=== PATIENT | male | born 2000 | race African-American/Black ===

== ENCOUNTER 2023-05-29 13:56 | Outpatient (REF) | payer OTHER, SELFPAY ==
--- NOTE | ~2023-05-29 | MR_ITS ---
EXAMINATION: MR KNEE WITHOUT CONTRAST, RIGHT CLINICAL INFORMATION: Right knee pain. COMPARISON: None available. TECHNIQUE: MRI of the knee without contrast was performed using routine sequences on a high-field scanner. FINDINGS: MENISCI: Medial Meniscus: At the posterior horn of the medial meniscus near the 5 mm low signal intensity flap of tissue along the femoral margin which could correspond to a very small flap fragment. No appreciable donor site is identified, however. A small synovial fold is favored. The medial meniscus otherwise appears normal. Lateral Meniscus: Intact LIGAMENTS: Cruciate: Intact Collateral: Intact EXTENSOR MECHANISM: Although the Insall-Salvati ratio is diminished (0.7) as a result of an elongated distal pole of the patella, the Ramez-Maciej index is normal (1.2). Minimal patellar tendinosis. Osseous fragmentation is present at the tibial tuberosity, most consistent with chronic changes of prior Lenard-Schlatter's disease. Quadriceps tendon is normal. ARTICULAR CARTILAGE/BONE: Patellofemoral Compartment: Normal. Medial Compartment: A very small ill-defined partial-thickness chondral surface irregularity suspected in the central trochlea, measuring 4 mm, best seen on image 11/31 of series 5. Trochlear morphology is normal. Patellar cartilage appears well-preserved. As noted above, there is elongation to the distal margin of the patella which may be due to chronic changes from prior jumper's knee. Lateral Compartment: Normal. JOINT FLUID AND BURSAE: Trace joint fluid is within normal limits. No bursitis. No Franco's cyst. MR/MR knee RT wo con IMPRESSION: 1. Small 5 mm flap of low signal intensity tissue near the posterior roots of the lateral meniscus. In the absence of a clear donor site from the underlying posterior horn, this likely represents a synovial fold. A small torn meniscal flap is possible, though not favored. 2. Minimal chondral surface irregularity in the central trochlea. Articular cartilage is otherwise well-preserved. 3. Chronic changes of [place]-Schlatter's disease with mild patellar tendinosis.
== END 2023-05-29 13:57 | disposition home or self-care (01) ==
LOC: HO.MRI 13:56
PROVIDERS: Visit Provider Family Medicine
DX: M25.561 Pain in right knee (principal)
CPT/HCPCS: 73721